=== PATIENT | male | born 1955 | race African-American/Black ===

== ENCOUNTER 2016-11-14 14:54 | Emergency (ER) | payer SELFPAY ==
[~2016-11-14] VITALS: Ht 175.3 cm; Wt 100.0 kg
[2016-11-14 14:56] VITALS: BP 192/102; PULSE 80; RESP 20; TEMP 97.8; O2SAT 97
--- NOTE | 2016-11-14 16:33 | PD ---
HPI . b/l eye pain L>R Chief Complaint: Eye Problems/Injury Time Seen by Provider: 16:49 Travel History International Travel<30 days: No Contact w/Intl Traveler<30days: No Traveled to known affect area: No History of Present Illness HPI 61-year-old male with no past medical history here with complaints of lateral eye pain. He reports the left is greater than the right. 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 He tried to flush it out, but still reports that he feels a sort of poking sensation especially in the left eye. He denies any visual changes or other issues with his eye. He tells me the only concern is that he feels that there may be a foreign body in there. PFSH Past Surgical History Appendectomy: Yes Social History Alcohol Use: No Tobacco Use: No Substance Use: No Allergies-Medications (Allergen,Severity, Reaction): Coded Allergies: Penicillin (Verified Allergy, Severe, STS PASSES OFF., 11/14/16) Reported Meds & Prescriptions Reported Meds & Active Scripts Active Tramadol (Tramadol HCl) 50 Mg Tab 50 Mg PO Q4H PRN Erythromycin Opth Oint 5 Mg/Gm Oint 1 Applic LEFT EYE BID 7 Days Review of Systems General / Constitutional: No: Fever Eyes: Positive: Foreign Body Sensation, Pain, No: Visual changes HENT: No: Headaches Cardiovascular: No: Chest Pain or Discomfort Respiratory: No: Shortness of Breath Gastrointestinal: No: Abdominal Pain Genitourinary: No: Dysuria Musculoskeletal: No: Pain Skin: No Rash Neurologic: No: Weakness Psychiatric: No: Depression Endocrine: No: Polydipsia Hematologic/Lymphatic: No: Easy Bruising Physical Exam Narrative GENERAL: AAO x 3, no acute distress, Well-nourished, well-developed patient. SKIN: Warm and dry. No visible rashes or bruising. HEAD: Normocephalic and atraumatic. EYES: No scleral icterus. No injection or drainage. EOM intact, PERRLA small foreign body on left inferior cornea, with fluorescein stain small abrasion in same location ENT: No nasal drainage noted. Mucous membranes pink. Airway patent. NECK: Supple, trachea midline. No JVD. CARDIOVASCULAR: Regular rate and rhythm without murmurs, gallops, or rubs. RESPIRATORY: Breath sounds equal bilaterally. No accessory muscle use. No rhonchi or rales. GASTROINTESTINAL: visual inspection normal. EXTREMITIES: No cyanosis or edema. BACK: Nontender without obvious deformity. NEURO: CN II-12 intact, journalism internship strength normal b/l, UE and LE 5/5, no focal deficits PSYCH: AAO x 3, normal affect. Data Data Last Documented VS Vital Signs Date Time Temp Pulse Resp B/P Pulse Ox O2 Delivery O2 Flow Rate FiO2 11/14/16 17:52 71 18 145/88 99 Room Air 11/14/16 14:56 97.8 Orders Proparacaine 0.5% Opth Soln (Alcaine 0.5 (11/14/16 17:00) Eye Irrigation (11/14/16 16:55) MDM Medical Decision Making Medical Screen Exam Complete: Yes Emergency Medical Condition: Yes Medical Record Reviewed: Yes Differential Diagnosis foreign body, corneal abrasion, eye burn, less likely retinal detachment Narrative Course 61-year-old male here with possible foreign body to his left thigh. Patient complains of eye pain in his bilateral eyes, but tells me he feels a foreign body sensation in his left eye. initial exam revealed possible fb of left eye, eye irrigation was performed b/l eyes. After the eye irrigation patient reports that his left eye is still hurting, but improved and his right eye is improved. There appears to be a small burn on the left eye and a small corneal abrasion. The right eye is unremarkable. I discussed with patient. I recommend follow-up with ophthalmology. I provided patient with erythromycin ophthalmic ointment and tramadol for pain. I advised him if he develops any sudden onset of eye pain or loss of vision, go to the nearest ED. Patient verbalized understanding of instructions, questions were answered, and thanked me for their care. I advised them if their condition worsens, please return to the nearest emergency room for further care. Procedures Procedure Narrative Fluorescein eye staining procedure: b/l eyes proparacaine drops instilled into the b/l eyes Local anesthesia was accomplished. the eye was inspected for any type of obvious foreign body; left eye appeared to have fb, I tried to remove without success. I discussed with Dr. Herrmann who recommended I contactSydney Hall PA-C who also tried and was unsuccessful, appears to be a burn fluorescein stain was applied to look for corneal abrasion, small abrasion of left eye Diagnosis Primary Impression: Eye burn Qualified Code: T26.42XA - Eye burn, left, initial encounter Additional Impression: Corneal abrasion Qualified Code: S05.02XA - Corneal abrasion, left, initial encounter Referrals: Maryam Lara MDpiping manager Patient Instructions: General Instructions Additional Instructions: Please return to emergency department if your symptoms return or worsen. Follow up with your primary care provider. Take medications as prescribed. Please see an eye doctor in the next few days. If you develop sudden onset of eye pain or loss of vision, go to the nearest emergency department. Med/Other Pt SpecificInfo: Prescription(s) given Scripts Tramadol 50 Mg Tab50 Mg PO Q4H PRN (PAIN) #12 TAB Ref 0 Prov:Bj Herrmann MD 11/14/16 Erythromycin Opth Oint 5 Mg/Gm Oint1 Applic LEFT EYE BID 7 Days Ref 0 Prov:Bj Herrmann MD 11/14/16 Disposition: 01 DISCHARGE HOME Condition: Stable Ellie Dominguez Nov 14, 2016 16:33
[2016-11-14] MEDS ORDERED: PROPARACAINE HCL 0.5% OPHT SOLN 15 ML BTL EACH EYE ONE (17:00)
[2016-11-14 17:52] VITALS: BP 145/88; PULSE 71; RESP 18; O2SAT 99
[2016-11-14] MEDS ORDERED: ERYTOIN10 LEFT EYE (18:50)
[2016-11-14] MEDS ORDERED: TRAM50TA PO (18:50)
== END 2016-11-14 19:50 | disposition home or self-care (01) ==
LOC: NEPC 14:54
DX: T26.42XA Burn of left eye and adnexa, part unspecified, initial encounter (principal); S05.02XA Injury of conjunctiva and corneal abrasion without foreign body, left eye, initial encounter; X58.XXXA Exposure to other specified factors, initial encounter; X08.8XXA Exposure to other specified smoke, fire and flames, initial encounter; Y99.0 Civilian activity done for income or pay
CPT/HCPCS: 99284